=== PATIENT | female | born 1985 | race Caucasian/White ===

== ENCOUNTER 2025-02-03 19:17 | Inpatient (IN) ==
--- NOTE | 2025-02-03 19:37 | ED Physician Documentation ---
History of Present Illness Stated complaint Stated Complaint: HYSTERECTOMY POST/OP -FEVER Chief complaint Chief Complaint: Fever Additonal information Additional information: 39-year-old with recent hysterectomy at [facility] on January 18 presents with lower abdominal pain and fever. Patient reports that she has been recovering well since her hysterectomy with Dr. Whaley on January 18. Over the last week, she has been having some right lower quadrant abdominal pain. Last night, she recorded a temperature of 101.1 F. She has been taking [id number] pain antipyretics. Otherwise, she denies any other systemic symptoms such as cough, congestion, shortness of breath, chest pain, vomiting, dysuria, vaginal bleeding, vaginal discharge, diarrhea, or constipation. Prior surgeries include hysterectomy and cholecystectomy. She went to Urgent Care and was tested negative for COVID/flu/RSV. Meds/Allgy Home Medications Ambulatory Orders Medication Instructions Recorded Confirmed No Known Home Medications 02/03/2508/23 Allergies Allergies Allergy/AdvReac Type Severity Reaction Status Date / Time Penicillins Allergy Hives Verified 02/03/25 19:28 PFSH Active Problems All Active Problems (Updated 02/04/25 @ 00:41 by Victoriano Leggett MD) Hydronephrosis of right kidney (Acute) Postoperative abscess (Acute) Fever and chills (Acute) Surgical History Surgical History (Updated 02/03/25 @ 22:34 by Gege Jauregui RN) History of hysterectomy Social History Social History (Updated 02/03/25 @ 10:04 by Sania August RN, BSN) Smoking Status: Never smoker Do you feel safe in your home environment?: Yes History of physical, verbal, emotional, or financial abuse?: No Exam Exam Vital Signs: Vital Signs x48h Temp Pulse Resp BP Pulse Ox 02/04/25 00:54 99 16 116/67 95 02/03/25 23:39 69 16 113/73 99 02/03/25 22:39 37.2 C 78 16 116/78 98 02/03/25 21:36 76 16 112/80 100 02/03/25 19:22 37.3 C 86 16 136/89 H 99 Resting comfortably no acute distress. No fever or tachycardia. Awake, alert, and oriented to person, place, and situation. Lungs are clear to auscultation bilaterally. S1 and S2 are audible. Abdomen is soft with right lower quadrant tenderness. There is no rebound or guarding. Moving all extremities without focal neurologic deficit. No lower extremity edema or calf tenderness bilaterally. Results Vitals Vitals: Vital Signs - 24 hr 02/03/25 19:22 02/03/25 19:58 02/03/25 21:36 Temperature 37.3 C Temperature Source Temporal Artery Scan Pulse Rate 86 76 Respiratory Rate 16 16 Blood Pressure 136/89 H 112/80 O2 Saturation 99 100 O2 Source Room air Room air Pain Intensity 3 4 02/03/25 22:26 02/03/25 22:39 02/03/25 23:38 Temperature 37.2 C Temperature Source Oral Pulse Rate 78 Respiratory Rate 16 Blood Pressure 116/78 O2 Saturation 98 O2 Source Room air Pain Intensity 2 3 7 02/03/25 23:39 02/04/25 00:08 02/04/25 00:54 Temperature Temperature Source Pulse Rate 69 99 Respiratory Rate 16 16 Blood Pressure 113/73 116/67 O2 Saturation 99 95 O2 Source Room air Room air Pain Intensity 4 Oxygen O2 Source Room air Labs Labs: Laboratory Tests 02/03/25 02/03/25 02/03/25 19:40 19:53 22:38 WBC 13.5 H RBC 3.76 L Hgb 10.0 L Hct 31.3 L MCV 83.2 MCH 26.6 L MCHC 31.9 L RDW 12.7 Plt Count 433 MPV 9.6 Neut # (Auto) 9.8 H Lymph # (Auto) 2.1 [place] # (Auto) 1.2 H Eos # (Auto) 0.2 Baso # (Auto) 0.1 Absolute Nucleated RBC 0.00 Nucleated RBC % 0.0 Sodium 137 Potassium 3.1 L Chloride 104 Carbon Dioxide 26 Anion Gap 7.0 BUN 11 Creatinine 0.6 Estimated GFR (MDRD) 111 Glucose 98 Lactic Acid 0.6 Calcium 9.0 Total Bilirubin 0.4 AST 17 ALT 25 Alkaline Phosphatase 160 H Total Protein 7.4 Albumin 3.9 Globulin 3.5 Albumin/Globulin Ratio 1.1 Urine Color YELLOW Urine Clarity HAZY Urine pH 6.5 Ur Specific [place] 1.010 Urine Protein NEGATIVE Urine Glucose (UA) NEGATIVE Urine Ketones NEGATIVE Urine Occult Blood MODERATE Urine Nitrite NEGATIVE Urine Bilirubin NEGATIVE Urine Urobilinogen 0.2 (NORMAL) Ur Leukocyte Esterase NEGATIVE Urine RBC 0-5 Urine WBC 0-3 Ur Squamous Epith Cells RARE Squamous Urine Bacteria Rare Ur Microscopic Review INDICATED Urine Culture Comments NOT INDICATED PD Medical Decision Making ED course ED course: This patient presents with fever and right lower quadrant abdominal pain 2 weeks after recent hysterectomy for adenomyosis. Fortunately, she is hemodynamically stable here. She already has had an appendectomy. Differential diagnosis includes postoperative infection, urinary tract infection, viral syndrome, and colitis. I will order labs, UA, and CT abdomen pelvis. I will treat pain with ketorolac. CT ab pelvis shows 5.2 cm postoperative pelvic abscess with associated localized bladder, colon, and ureteral inflammation. There is moderate right hydrou reteronpehrosis. Ceftriaxone and metronidazole were commenced after blood cultures and lactic acid were drawn. I spoke to on-call MAINTENANCE REPAIRMAN at [place]. They did not feel the patient necessarily needed transfer for admission there. There are also no current inpatient beds. I then spoke to on-call MAINTENANCE REPAIRMAN Dr. Arriaga here. She felt the patient would be appropriate to keep here for treatment. We did discuss the potential for transfer to a facility with IR. I then was connected with [facility] IR team Dr. Palacios. He was unable to view the CT images at that time. However, he states he will review the images during the day as this is not technically a consult they take overnight. He also would not perform the procedure until Wednesday anyway if indicated. The patient does not need emergent transfer for IR intervention at this time as she is not hemodynamically unstable. She will be admitted here to the MAINTENANCE REPAIRMAN service under Dr. Arriaga. Discharge Plan Discharge Patient Disposition: [facility] DC/Xfer Clinical Impression: Postoperative abscess, Hydronephrosis of right kidney Interventions: ED Admission Assessment Last Done: 02/04/25 02:14 Vitals documented within 30 minutes of discharge?: Yes
[2025-02-03] MEDS ORDERED: KETOROLAC 30 MG/ML VIAL ONE (19:56)
[2025-02-03] MEDS: KETOROLAC 15 MG/ML VIAL IVP PRN (19:58)
[2025-02-03 20:00] LABS: HCT - HEMATOCRIT 31.3 % (37.0-47.0); HGB - HEMOGLOBIN 10.0 g/dL (12.0-16.0); MEAN PLATELET VOLUME 9.6 fL (7.9-10.8); NRBC ABSOLUTE COUNT (AUTO) 0.00 x10^3/uL; NUCLEATED RED BLOOD CELLS AUTO 0.0 /100WBC; PLT - PLATELET COUNT 433 10^3/uL (130-450); RED CELL DISTRIBUTION WIDTH 12.7 % (12.0-15.0)
[2025-02-03 20:04] LABS: GLUCOSE, URINE (UA) NEGATIVE (NEGATIVE); KETONES,URINE (UA) NEGATIVE (NEGATIVE); OCCULT BLOOD,URINE MODERATE (NEGATIVE)
[2025-02-03 20:18] LABS: ALT ALANINE AMINOTRANSFERASE 25.0 IU/L (10-60); AST ASPARTATE AMINOTRANSFERASE 17.0 IU/L (10-42); BUN - BLOOD UREA NITROGEN 11.0 mg/dL (6-20); CARBON DIOXIDE - CO2 26.0 mmol/L (21-32); CREATININE 0.6 mg/dL (0.6-1.3); GFR - MDRD 111.0 (>89)
[2025-02-03 20:22] LABS: SQUAMOUS EPITHELIAL CELL,UR RARE Squamous (<= Few)
--- NOTE | 2025-02-03 21:53 | CT Report ---
PROCEDURE: CT Abdomen/Pelvis W INDICATIONS: recent hysterectomy, fever, RLQ pain, appendectomy CONTRAST: 100 ML OMNI 300 TECHNIQUE: After the administration of intravenous contrast, a CT scan of the abdomen and pelvis was performed. Images were recorded and evaluated at appropriate window settings. Reformats: coronal and sagittal. For radiation dose reduction, the following was used: automated exposure control, adjustment of mA and/or kV according to patient size. COMPARISON: None. FINDINGS: Image quality: Diagnostic. Lower chest: Bilateral breast implants.. Liver: No solid mass. Heterogeneous enhancement of the right inferior liver, likely secondary to contrast phase. Gallbladder: No radiopaque stones or wall thickening. Biliary tree: No intrahepatic or extrahepatic dilation, accounting for age. Spleen: No splenomegaly. Pancreas: No pancreatic ductal dilation. Adrenals: No adrenal nodule. Kidneys and ureters: Moderate right hydroureteronephrosis secondary to obstruction of the right distal ureter at the level of the pelvic abscess described below. There is hypoenhancement of the right kidney in relation to the left. The left kidney is unremarkable. Stomach, bowel and peritoneum: Prominent thickening and inflammatory change centered around the vaginal cuff. There is a rim-enhancing fluid collection within the pelvis at the right superior margin of the vaginal cuff measuring approximately 4.5 x 5.2 x 3.0 cm. The collection abuts the right posterior bladder wall and the distal sigmoid colon, both of which demonstrate wall thickening and inflammatory change, likely reactive. There is also abutment of small bowel loops superiorly. The remaining small and large bowel are unremarkable. Status post appendectomy. Lymph nodes: No central or retroperitoneal adenopathy. Vessels: No infrarenal aortic aneurysm. Patent portal vein. PELVIS Reproductive organs: Status post recent hysterectomy. Thickening and prominent inflammatory change centered around the vaginal cuff, with findings of pelvic abscess and adjacent inflammation described above. Bladder: Circumferential bladder wall thickening and inflammatory change, possibly reactive Pelvic lymph nodes: No pelvic adenopathy by size criteria. Bones: No aggressive osseous abnormality. Other: No significant ventral or inguinal hernia. IMPRESSION: Status post recent hysterectomy with prominent inflammatory change centered at the vaginal cuff. There is a 5.2 cm abscess at the superior right margin of the vaginal cuff, abutting the bladder, distal sigmoid colon, and pelvic small bowel loops. Moderate right hydroureteronephrosis secondary to obstruction of the right distal ureter at the level of the pelvic abscess, with mild hypoenhancement of the right kidney. Circumferential bladder wall thickening and inflammatory change, likely reactive to pelvic abscess described. Correlate with urinalysis and clinical symptoms for findings of concurrent acute cystitis. Inflammatory change of the distal sigmoid colon is likely reactive to pelvic abscess. Reviewed by: Prem Daly MD on 02/03/2025 9:50 PM PST Approved by: Prem Daly MD on 02/03/2025 9:50 PM PST Station ID: [id number]
[2025-02-03] MEDS: oxyCODONE 5 MG TABLET PO PRN (23:38)
[2025-02-04] MEDS ORDERED: ZOLPIDEM 5 MG TABLET PO PRN (01:55)
[2025-02-04] MEDS ORDERED: FAMOTIDINE 20 MG TABLET PO PRN (01:55)
[2025-02-04] MEDS ORDERED: SODIUM CHLORIDE FLUSH 0.9% 10 ML SYRINGE IVP PRN (01:55)
[2025-02-04] MEDS ORDERED: METOCLOPRAMIDE 10 MG/2 ML VIAL IVP PRN (01:55)
--- NOTE | 2025-02-04 01:59 | HISTORY & PHYSICAL EXAMINATION ---
History of Present Illness History of Present Illness HPI Comment/Other: Details: Helena is a 39 yo who is admitted with postoperative pelvic abscess. She presented to the emergency room with fever, nausea, decreased appetite, and right sided pelvic pain following a total laparoscopic hysterectomy with bilateral salpingectomy performed on January 18 at [facility]. The hysterectomy was done for adenomyosis. She reports fever starting yesterday reaching 101 degrees. Right sided pelvic pain started approximately one week ago. She reports nausea but no vomiting. At home, she was managing her pain with Tylenol and ibuprofen. She was seen in urgent care yesterday since she was not feeling well and tested for flu/covid which were negative. Decided to come to the ER today since she still wasn't feeling well. She reports a mild allergy to penicillin and believes she has tolerated cephalosporin antibiotics before. She lives in [place]. Meds/Allgy Home Medications Ambulatory Orders Medication Instructions Recorded Confirmed No Known Home Medications 02/03/2508/23 Allergies Allergies Allergy/AdvReac Type Severity Reaction Status Date / Time Penicillins Allergy Hives Verified 02/03/25 19:28 PFSH Active Problems All Active Problems (Updated 02/04/25 @ 00:41 by Victoriano Leggett MD) Fever and chills (Acute) Hydronephrosis of right kidney (Acute) Postoperative abscess (Acute) Surgical History Surgical History (Updated 02/04/25 @ 12:12 by Lynn Arriaga MD) History of appendectomy History of hysterectomy History of tonsillectomy Social History Social History (Updated 02/03/25 @ 10:04 by Sania August, RN, BSN) Smoking Status: Never smoker Second hand tobacco smoke exposure: No Do you dip or chew tobacco?: No Do you vape?: No Patient requests smoking cessation consult: No Initiate information on smoking cessation: No Level: Independent Do you feel safe in your home environment?: Yes History of physical, verbal, emotional, or financial abuse?: No POLST Patient has POLST: No Review of Systems Fever present, reaching 101 degrees starting yesterday. Nausea present. Denies vomiting. Denies diarrhea or constipation. Denies vaginal bleeding or abnormal discharge. Denies chest pain. Denies shortness of breath. Exam Exam Vital Signs: Vital Signs x48h Temp Pulse Resp BP BP Pulse Ox 02/04/25 11:48 84 87/52 L 02/04/25 11:45 97.7 F 80 16 86/54 L 98 02/04/25 07:55 99.1 F 84 16 108/74 99 02/04/25 06:00 98.2 F 86 12 105/73 98 Constitutional normal general appearance and no apparent distress She is overall well-appearing. Respiratory breath sounds equal bilaterally, normal respiratory effort and clear to auscultation bilaterally Cardiovascular normal heart rate noted and regular rhythm noted Gastrointestinal abdomen soft to palpation mildly TTP in lower abdomen on right, no rebound/guarding. Non-distended. Laparoscopic incisions are healing well, no evidence of infection. Genitourinary Deferred Psychiatry cooperative and affect normal Skin skin color normal and no rash Conclusion/Plan Problem List (1) Postoperative abscess: (2) History of hysterectomy: (3) Hydronephrosis of right kidney: Plan - Rosy is admitted for treatment of a 5.2cm pelvic abscess with IV antibiotics, IV ceftriaxone and metronidazole. - I requested that Dr. Alba review CT images today given the findings of moderate right hydroureteronephrosis and he recommended CT IVP if repeat imaging is obtained for follow up of the abscess. Hopefully ureteral/renal findings will improve with treatment of the abscess, but if abnormal findings persist may need further evaluation to ensure there is no ureteral injury. - Will plan for CT IVP Wednesday AM after 48hrs of IV antibiotics. Will make NPO on Wednesday morning in case cystoscopy is needed. Lab Results Lab results reviewed: Yes 02/03/25 19:53 02/03/25 19:53 Other Lab Results: Lactic Acid 0.6 UA with mod blood negative for leuks, nitrites, urine culture not indicated Cr 0.6 Blood cultures drawn in ED pending. Diagnostic Imaging Results Diagnostic Imaging Results Comments: CT A/P Report/Images reviewed: PROCEDURE: CT Abdomen/Pelvis W INDICATIONS: recent hysterectomy, fever, RLQ pain, appendectomy CONTRAST: 100 ML OMNI 300 TECHNIQUE: After the administration of intravenous contrast, a CT scan of the abdomen and pelvis was performed. Images were recorded and evaluated at appropriate window settings. Reformats: coronal and sagittal. For radiation dose reduction, the following was used: automated exposure control, adjustment of mA and/or kV according to patient size. COMPARISON: None. FINDINGS: Image quality: Diagnostic. Lower chest: Bilateral breast implants.. Liver: No solid mass. Heterogeneous enhancement of the right inferior liver, likely secondary to contrast phase. Gallbladder: No radiopaque stones or wall thickening. Biliary tree: No intrahepatic or extrahepatic dilation, accounting for age. Spleen: No splenomegaly. Pancreas: No pancreatic ductal dilation. Adrenals: No adrenal nodule. Kidneys and ureters: Moderate right hydroureteronephrosis secondary to obstruction of the right distal ureter at the level of the pelvic abscess described below. There is hypoenhancement of the right kidney in relation to the left. The left kidney is unremarkable. Stomach, bowel and peritoneum: Prominent thickening and inflammatory change centered around the vaginal cuff. There is a rim-enhancing fluid collection within the pelvis at the right superior margin of the vaginal cuff measuring approximately 4.5 x 5.2 x 3.0 cm. The collection abuts the right posterior bladder wall and the distal sigmoid colon, both of which demonstrate wall thickening and inflammatory change, likely reactive. There is also abutment of small bowel loops superiorly. The remaining small and large bowel are unremarkable. Status post appendectomy. Lymph nodes: No central or retroperitoneal adenopathy. Vessels: No infrarenal aortic aneurysm. Patent portal vein. PELVIS Reproductive organs: Status post recent hysterectomy. Thickening and prominent inflammatory change centered around the vaginal cuff, with findings of pelvic abscess and adjacent inflammation described above. Bladder: Circumferential bladder wall thickening and inflammatory change, possibly reactive Pelvic lymph nodes: No pelvic adenopathy by size criteria. Bones: No aggressive osseous abnormality. Other: No significant ventral or inguinal hernia. IMPRESSION: Status post recent hysterectomy with prominent inflammatory change centered at the vaginal cuff. There is a 5.2 cm abscess at the superior right margin of the vaginal cuff, abutting the bladder, distal sigmoid colon, and pelvic small bowel loops. Moderate right hydroureteronephrosis secondary to obstruction of the right distal ureter at the level of the pelvic abscess, with mild hypoenhancement of the right kidney. Circumferential bladder wall thickening and inflammatory change, likely reactive to pelvic abscess described. Correlate with urinalysis and clinical symptoms for findings of concurrent acute cystitis. Inflammatory change of the distal sigmoid colon is likely reactive to pelvic abscess. Reviewed by: Prem Daly MD on 02/03/2025 9:50 PM PST Approved by: Prem Daly MD on 02/03/2025 9:50 PM PST
[2025-02-04] MEDS ORDERED: GENTAMICIN 308 MG in SODIUM CHLORIDE 0.9% 100ML 100 ML IV SCH (02:00)
[2025-02-04] MEDS ORDERED: CLINDAMYCIN 900 MG/50 ML 900 MG/50 ML BAG IV SCH (02:00)
[2025-02-04] MEDS ORDERED: CALCIUM CARBONATE CHEW 500 MG TABLET PO PRN (03:09)
[2025-02-04] MEDS ORDERED: SIMETHICONE CHEW 80 MG TABLET PO PRN (03:09)
[2025-02-04] MEDS: IBUPROFEN 600 MG TABLET PO PRN (07:08)
[2025-02-04] MEDS: ONDANSETRON ODT 4 MG TABLET TL PRN (07:09)
[2025-02-04] MEDS: SODIUM CHLORIDE FLUSH 0.9% 10 ML SYRINGE IVP SCH (08:06)
--- NOTE | 2025-02-04 08:56 | PHARMACY PROGRESS NOTE ---
Best Possible Medication History Admit Date and Time: 02/04/25 0127 Home Medications Medication Instructions Recorded Confirmed Type No Known Home Medications 02/03/2508/23 History Processed by: Nursing Medications reviewed in ED?: Yes Medication History completed: Yes Secondary Source(s): Pharmacy records and Insurance records [facility] Statement: As the person ultimately responsible for medication therapy, providers are able to order a medication from an existing home medication list in [facility] via the "Reconcile Routine" prior to Confirmation of that medication by system support specialist. Such practice is discouraged except when the physician, in their clinical judgment, deems that a medical need exists for a medication without regard to previous use.
[2025-02-04] MEDS: ACETAMINOPHEN 325 MG TABLET PO PRN (15:34)
[2025-02-04 16:11] LABS: HCT - HEMATOCRIT 26.6 % (37.0-47.0); HGB - HEMOGLOBIN 8.6 g/dL (12.0-16.0); MEAN PLATELET VOLUME 9.3 fL (7.9-10.8); NRBC ABSOLUTE COUNT (AUTO) 0.00 x10^3/uL; NUCLEATED RED BLOOD CELLS AUTO 0.0 /100WBC; PLT - PLATELET COUNT 332 10^3/uL (130-450); RED CELL DISTRIBUTION WIDTH 12.8 % (12.0-15.0)
--- OUTSIDE RECORDS SUMMARY | 2025-02-04 16:21 | EXTERNAL MEDICAL SUMMARY RPT | Continuity of Care Document ---
Author Organization [facility] Address [address] [place] [address] Phone Care Team Providers Care Cnc Lathe Machine Operator Name Role Phone Parminder KRUGER, Gualberto Unavailable Unavailable Allergies, Adverse Reactions, Alerts Substance Reaction Status Criticality Penicillins Rash Active No Information Medications Medication Instructions Dosage Effective Dates (start - stop) Status Comments Reclipsen (28) 0.15 mg-30 mcg tablet take 1 tablet by oral route every day 1.00 tablet - Active Procedures Procedure Date REMOVE INTRAUTERINE DEVICE FLU VACCINE NO PRESERV 3 & > IMMUNIZATION ADMIN REMOVE INTRAUTERINE DEVICE OFFICE/OUTPATIENT VISIT, EST OFFICE/OUTPATIENT VISIT, EST Intraut copper contraceptive INSERT INTRAUTERINE DEVICE CARE AFTER DELIVERY (Post- Care) A POSTOP FOLLOW-UP VISIT Return OB DELIVERY Return OB Return OB Return OB Return OB Return OB CULTURE SCREEN ONLY CULTURE TYPE, NUCLEIC ACID Return OB Return OB TDAP VACCINE >7 IM IMMUNIZATION ADMIN Return OB OB US, FOLLOW-UP, PER FETUS GLUCOSE TEST COMPLETE CBC W/AUTO DIFF WBC ROUTINE VENIPUNCTURE Return OB OB US >/= 14 WKS, SNGL FETUS Return OB Return OB FLU VACCINE NO PRESERV 3 & > IMMUNIZATION ADMIN Return OB OB Contract New Patient OB Physical ROUTINE VENIPUNCTURE OBSTETRIC PANEL CYTOPATH C/V AUTO FLUID REDO CHYLMD TRACH, DNA, AMP PROBE N.GONORRHOEAE, DNA, AMP PROB URINE CULTURE/COLONY COUNT Advance Directives Directive Yes / No Effective Date File Name No Information Encounters Encounter Description Practice Location Reason(s) For Visit Diagnoses Date Provider Providers Copied on Encounter [facility], [address], [place], [id number] , [place] tel: [phone] [facility] No Information 6 Parminder Burciaga. [address] [place], [address], [place]. tel:[phone] OFFICE/OUTPAT IENT VISIT, EST [facility], [address], [place], [id number] , [place] tel: [phone] [facility] IUD removal (chief complaint) REMOVAL OF IUD 2 Parminder Burciaga. [address] [place], [address], [place]. tel:[phone] Referring Provider: Gualberto Constantino, [address] [place], [address]. tel:[phone] OFFICE/OUTPAT IENT VISIT, EST [facility], [address], [place], [id number] , [place] tel: [phone] [facility] IUD check (chief complaint) Presence of intrauterine contraceptive device 2 Parminder Burciaga. [address] [place], [address], [place]. tel:[phone] Referring Provider: Gualberto Constantino, [address] [place], [address]. tel:[phone] [facility], [address], [place], [id number] , [place] tel: [phone] [facility] visit (chief complaint) Followup VisitIUDINSERTION OF IUD 2 Zurita Gualberto. [address] [place] [facility], [address], [place]. tel:[phone] Referring Provider: Gualberto Zurita W, [address] [place] [facility], [address]. tel:[phone] [facility], [address], [place], [place], [id number] , [place] tel: [phone] [facility] Follow-up examination, following unspecified surgery 2 Parminder Burciaga. [address] [place] [facility] [place], [address], [place]. tel:[phone] Referring Provider: Gualberto Constantino, [address] [place] [facility], [address]. tel:[phone] [facility], [address], [place], [place], [id number] , [place] tel: [phone] [facility] No Information 2 Zurita Gualberto. [address] [place] [facility] [place] [place], [address], [place]. tel:[phone] Referring Provider: Gualberto Zurita W, [address] [place] [facility] [place], [address]. tel:[phone] [facility], [address], [place], [place], [id number] , [place] tel: [phone] [facility] No Information 2 Erasto Morin. [address], [place], [place], [id number]. tel:[phone] Referring Provider: Patience Neal, [address], [place], [address] . tel:[phone] [facility], [address], [place], [place], [id number] , [place] tel: [phone] [facility] No Information 0 2 Parminder Burciaga. [address] [place] [facility], [address], [place]. tel:[phone] Referring Provider: Gualberto Constantino, [address] [place] [facility] [place] [place], [address]. tel:[phone] [facility], [address] [place], [place], [id number] , [place] tel: [phone] [facility] No Information 2 Parminder Burciaga. [address] [place] [facility], [address], [place]. tel:[phone] Referring Provider: Gualberto Zurita W, [address] [place] [facility], [address]. tel:[phone] [facility], [address] [place], [place], [id number] , [place] tel: [phone] [facility] No Information 2 Parminder Burciaga. [address] [place] [facility] [place] [place], [address], [place]. tel:[phone] Referring Provider: Gualberto Zurita W, [address] [place] [facility] [place], [address]. tel:[phone] [facility], [address] [place], [place], [id number] , [place] tel: [phone] [facility] No Information 2 Parminder Burciaga. [address] [place] [facility] [place] [place], [address], [place]. tel:[phone] Referring Provider: Gualberto Constantino, [address] [place] [facility] [place] [place], [address]. tel:[phone] [facility], [address] [place], [place], [id number] , [place] tel: [phone] [facility] (chief complaint) No Information 2 Parminder Burciaga. [address] [place] [facility] [place] [place], [address], [place]. tel:[phone] Referring Provider: Gualberto Zurita W, [address] [place] [facility] [place], [address]. tel:[phone] [facility], [address] [place], [place], [id number] , [place] tel: [phone] [facility] (chief complaint) No Information 2 Boydusha Hernandez. [address], [place], [place], [id number]. tel:[phone] Referring Provider: Gualberto Constantino, [address] [place] [facility] [place], [address]. tel:[phone] [facility], [address], [place], [id number] , [place] tel: [phone] [facility] NEED FOR PROPHYLACTIC VACCINATION WITH COMBINED DIPHTHERIA-TETANUS -PERTUSSIS (DTP) (DTAP) VACCINE 2 Parminder Burciaga. [address] [place] [facility] [place] [place], [address], [place]. tel:[phone] Referring Provider: Gualberto Constantino, [address] [place] [facility] [place] [place], [address]. tel:[phone] [facility], [address], [place], [id number] , [place] tel: [phone] [facility] (chief complaint) No Information 1 Boydusha Hernandez. [address], [place], [place], [id number]. tel:[phone] Referring Provider: Gualberto Constantino, [address] [place] [facility] [place] [place], [address]. tel:[phone] [facility], [address], [place], [id number] , [place] tel: [phone] [facility] No Information 1 Abhilash Miesha. [address], [place], [id number], [place]. tel:[phone] Referring Provider: Gualberto Constantino, [address] [place] [facility] [place] [place], [address]. tel:[phone] [facility], [address], [place], [id number] , [place] tel: [phone] [facility] (chief complaint) No Information 1 Oliver Hernandez. [address], [place], [place], [id number]. tel:[phone] Referring Provider: Gualberto Constantino, [address] [place] [facility] [place] [place], [address]. tel:[phone] [facility], [address] [place], [id number] , [place] tel: [phone] [facility] (chief complaint) No Information 1 Fany Alvarado. [address], [place], [id number]. tel:[phone] Referring Provider: Gualberto Constantino, [address] [place] [facility] [place], [address]. tel:[phone] [facility], [address], [place], [id number] , [place] tel: [phone] [facility] Influenza Vaccine 1 Parminder Burciaga. [address] [place] [facility] [place] [place], [address], [place]. tel:[phone] Referring Provider: Gualberto Constantino, [address] [place] [facility] [place] [place], [address]. tel:[phone] [facility], [address] [place], [id number] , [place] tel: [phone] [facility] No Information 1 Parminder Burciaga. [address] [place] [facility], [address], [place]. tel:[phone] [facility], [address] [place], [id number] , [place] tel: [phone] [facility] No Information 1 Parminder Burciaga. [address] [place] [facility] [place] [place], [address], [place]. tel:[phone] Referring Provider: Gualberto Constantino, [address] [place] [facility], [address]. tel:[phone] [facility], [address], [place], [id number] , [place] tel: [phone] [facility] No Information 1 Fany Alvarado. [address], [place], [id number]. tel:[phone] Referring Provider: Christiano August, [address] [place], [address] . tel:[phone] [facility], [address], [place], [id number] , [place] tel: [phone] [facility] No Information 1 Oliver Hernandez. [address], [place], [place], [id number]. tel:[phone] Referring Provider: Chirstiano August [address] [place], [address] . tel:[phone] Family History Family Member Type Diagnosis Age At Onset Paternal grandmother Problem (finding) Obesity Mother Problem (finding) raised blood lipids Paternal grandmother Problem (finding) Diabetes mellit us Immunizations Vaccine Date Status Comments flu (split) preservative joe e, 3 yrs or older administered Source: New Immuniza tion Record Tdap (Adacel r) administered Source: New Immunization Record flu (split) preservative joe e, 3 yrs or older administered Source: New Immuniza tion Record flu (split) (3 yrs or older) administered Source: New Immunization Record Payers Payer name Insurance type Covered democrat ID Authoriza tion(s) [place] Source N CI [id number] Social History Type Description Quantity Date Captured Comments Alcohol Use Details Unknown Caffeine Use Details Unknown Tobacco Use Status No Information Smoking Status No Information Sex Female Chief Complaint And Reason For Visit No Information Reason For Referral Reason For Referral No Information Plan Of Treatment Date Type Action Status Referral Ordered: US preg uterus, FU/repeat ordered History Of Present Illness Encounter Date Complaint History Of Prese nt Illness No Information Functional Status Date Functional Assessmen t No Information Instructions Date Instruction Additional Infor mation No Information Assessments Type Assessment Date No Information Patient Care Teams Name Effective Dates (start - stop) Status Members No Information
--- OUTSIDE RECORDS SUMMARY | 2025-02-04 16:21 | EXTERNAL MEDICAL SUMMARY RPT | Continuity of Care Document ---
Author Organization [facility] Address [address] [place] [address] Phone Care Team Providers Care Sprayer Automatic Spray Machine Name Role Phone Parminder KRUGER, Gualberto Unavailable [...] [facility], [address], [place], [id number] , [place] tel: [phone] [facility] No Information 6 Parminder Burciaga. [address] [place], [address], [place]. tel:[phone] OFFICE/OUTPAT IENT VISIT, EST [facility], [address], [place], [id number] , [place] tel: [phone] [facility] IUD removal (chief complaint) REMOVAL OF IUD 2 Parminder Burciaga. [address] [place], [address], [place]. tel:[phone] Referring Provider: Gualberto Constantino, [address] [place], [address]. tel:[phone] OFFICE/OUTPAT IENT VISIT, EST [facility], [address], [place], [id number] , [place] tel: [phone] [facility] IUD check (chief complaint) Presence of intrauterine contraceptive device 2 Parminder Burciaga. [address] [place], [address], [place]. tel:[phone] Referring Provider: Gualberto Constantino, [address] [place], [address]. tel:[phone] [facility], [address], [place], [id number] , [place] tel: [phone] [facility] visit (chief complaint) Followup VisitIUDINSERTION OF IUD 2 Zurita Gualberto. [address] [place] [facility], [address], [place]. tel:[phone] Referring Provider: Gualberto Zurita W, [address] [place] [facility], [address]. tel:[phone] [facility], [address], [place], [place], [id number] , [place] tel: [phone] [facility] Follow-up examination, following unspecified surgery 2 Parminder Burciaga. [address] [place] [facility], [address], [place]. tel:[phone] Referring Provider: Gualberto Constantino, [address] [place] [facility], [address]. tel:[phone] [facility], [address], [place], [place], [id number] , [place] tel: [phone] [facility] No Information 2 Zurita Gualberto. [address] [place] [facility] [place], [address], [place]. tel:[phone] Referring Provider: Gualberto Zurita W, [address] [place] [facility], [address]. tel:[phone] [facility], [address], [place], [place], [id number] , [place] tel: [phone] [facility] No Information 2 Erasto Morin. [address], [place], [place], [id number]. tel:[phone] Referring Provider: Patience Neal, [address], [place], [address] . tel:[phone] [facility], [address], [place], [place], [id number] , [place] tel: [phone] [facility] No Information 0 2 Parminder Burciaga. [address] [place] [facility], [address], [place]. tel:[phone] Referring Provider: Gualberto Constantino, [address] [place] [facility], [address]. tel:[phone] [facility], [address] [place], [place], [id number] , [place] tel: [phone] [facility] No Information 2 Parminder Burciaga. [address] [place] [facility], [address], [place]. tel:[phone] Referring Provider: Gualberto Zurita W, [address] [place] [facility], [address]. tel:[phone] [facility], [address] [place], [place], [id number] , [place] tel: [phone] [facility] No Information 2 Parminder Burciaga. [address] [place] [facility], [address], [place]. tel:[phone] Referring Provider: Gualberto Zurita W, [address] [place] [facility], [address]. tel:[phone] [facility], [address] [place], [place], [id number] , [place] tel: [phone] [facility] No Information 2 Parminder Burciaga. [address] [place] [facility] [place], [address], [place]. tel:[phone] Referring Provider: Gualberto Constantino, [address] [place] [facility], [address]. tel:[phone] [facility], [address] [place], [place], [id number] , [place] tel: [phone] [facility] (chief complaint) No Information 2 Parminder Burciaga. [address] [place] [facility] [place], [address], [place]. tel:[phone] Referring Provider: Gualberto Zurita W, [address] [place] [facility], [address]. tel:[phone] [facility], [address] [place], [place], [id number] , [place] tel: [phone] [facility] (chief complaint) No Information 2 Boydusha Hernandez. [address], [place], [place], [id number]. tel:[phone] Referring Provider: Gualberto Constantino, [address] [place] [facility], [address]. tel:[phone] [facility], [address], [place], [id number] , [place] tel: [phone] [facility] NEED FOR PROPHYLACTIC VACCINATION WITH COMBINED DIPHTHERIA-TETANUS -PERTUSSIS (DTP) (DTAP) VACCINE 2 Parminder Burciaga. [address] [place] [facility], [address], [place]. tel:[phone] Referring Provider: Gualberto Constantino, [address] [place] [facility], [address]. tel:[phone] [facility], [address], [place], [id number] , [place] tel: [phone] [facility] (chief complaint) No Information 1 Boydusha Hernandez. [address], [place], [place], [id number]. tel:[phone] Referring Provider: Gualberto Constantino, [address] [place] [facility], [address]. tel:[phone] [facility], [address], [place], [id number] , [place] tel: [phone] [facility] No Information 1 Abhilash Miesha. [address], [place], [id number], [place]. tel:[phone] Referring Provider: Gualberto Constantino, [address] [place] [facility], [address]. tel:[phone] [facility], [address], [place], [id number] , [place] tel: [phone] [facility] (chief complaint) No Information 1 Oliver Hernandez. [address], [place], [place], [id number]. tel:[phone] Referring Provider: Gualberto Constantino, [address] [place] [facility], [address]. tel:[phone] [facility], [address] [place], [id number] , [place] tel: [phone] [facility] (chief complaint) No Information 1 Fany Alvarado. [address], [place], [id number]. tel:[phone] Referring Provider: Gualberto Constantino, [address] [place] [facility], [address]. tel:[phone] [facility], [address], [place], [id number] , [place] tel: [phone] [facility] Influenza Vaccine 1 Parminder Burciaga. [address] [place] [facility], [address], [place]. tel:[phone] Referring Provider: Gualberto Constantino, [address] [place] [facility], [address]. tel:[phone] [facility], [address] [place], [id number] , [place] tel: [phone] [facility] No Information 1 Parminder Burciaga. [address] [place] [facility], [address], [place]. tel:[phone] [facility], [address] [place], [id number] , [place] tel: [phone] [facility] No Information 1 Parminder Burciaga. [address] [place] [facility], [address], [place]. tel:[phone] Referring Provider: Gualberto Constantino, [address] [place] [facility], [address]. tel:[phone] [facility], [address], [place], [id number] , [place] tel: [phone] [facility] No Information 1 Fany Alvarado. [address], [place], [id number]. tel:[phone] Referring Provider: Christiano uAgust, [address] [place], [id number] . tel:[phone] [facility], [address], [place], [id number] , [place] tel: [phone] [facility] No Information 1 Oliver Hernandez. [address], [place], [place], [id number]. tel:[phone] Referring Provider: Christiano August [address] [place], [address] . tel:[phone] Family History Family Member Type Diagnosis Age [...] Record Payers Payer name Insurance type Covered constitution party ID Authoriza tion(s) [place] Source N CI [id number] Social History Type Description Quantity Date Captured [...]
[2025-02-04 16:24] LABS: ALT ALANINE AMINOTRANSFERASE 18.0 IU/L (10-60); AST ASPARTATE AMINOTRANSFERASE 10.0 IU/L (10-42); BUN - BLOOD UREA NITROGEN 13.0 mg/dL (6-20); CARBON DIOXIDE - CO2 24.0 mmol/L (21-32); CREATININE 0.6 mg/dL (0.6-1.3); GFR - MDRD 111.0 (>89)
[2025-02-04] MEDS: cefTRIAXone 2 GM in SODIUM CHLORIDE 0.9% MINIBAG 100 ML IV SCH (21:10)
--- NOTE | 2025-02-04 22:20 | PROVIDER PROGRESS NOTE ---
Subjective Prog Note Date Prog Note Date: 02/04/25 Prog Note Time: 22:14 Subjective Subjective: Rosy was seen at bedside again this afternoon. Reports still feeling unwell with ongoing twinges of pain in the right lower abdomen. Headache and nausea today. Nurse reports lower blood pressures today, but Rosy has been asymptomatic. On exam, abdomen remains soft, non-distended, mildly TTP in right lower abdomen, no rebound/guarding. Labs reviewed: CBC, CMP. Noted decreased in Hgb 10->8.6. Slightly improved WBC 13.5 -> 12.2. I reviewed plan with Rosy to continue IV antibiotics for 48hrs and then to repeat imaging with CT IVP on Wednesday to reevaluate status of abscess and right ureteral/renal findings. She does agree with plan of care. Repeat CBC ordered for tomorrow AM. Lynn Arriaga MD Current Medications Current Medications Current Medications: Current Medications Generic Name Dose Route Start Last Admin Trade Name Freq PRN Reason Stop Dose Admin Acetaminophen 650 mg 02/04/25 01:55 02/04/25 21:08 Acetaminophen 325 Mg Tablet PO 650 mg Q4HR PRN Administration Moderate Pain (Level 4-6) Calcium Carbonate/Glycine 1,000 mg 02/04/25 03:09 Calcium Carbonate Chew 500 Mg Tablet PO Q6HR PRN Heartburn Diphenhydramine HCl 25 mg 02/04/25 03:09 Diphenhydramine 25 Mg Capsule PO Q6HR PRN allergies, itching, insomnia Famotidine 20 mg 02/04/25 01:55 Famotidine 20 Mg Tablet PO BID PRN heartburn Ceftriaxone Sodium 2 gm/ 100 mls @ 200 mls/hr 02/04/25 22:00 02/04/25 21:40 Sodium Chloride IV Infused DAILY MALENA Infusion Metronidazole 500 mg in 100 mls @ 100 mls/hr 02/04/25 08:00 02/04/25 16:57 Flagyl 500 Mg/100 Ml IV Infused Q8H MALENA Infusion Ibuprofen 600 mg 02/04/25 01:55 02/04/25 07:08 Ibuprofen 600 Mg Tablet PO 600 mg Q6HR PRN Administration Moderate Pain (Level 4-6) Metoclopramide HCl 10 mg 02/04/25 01:55 Metoclopramide 10 Mg/2 Ml Vial IVP Q6H PRN Nausea / Vomiting Ondansetron HCl 4 mg 02/04/25 01:55 Ondansetron 4 Mg/2 Ml Vial IVP Q6H PRN Nausea / Vomiting Ondansetron HCl 4 mg 02/04/25 03:04 02/04/25 07:09 Ondansetron Odt 4 Mg Tablet TL 4 mg Q6HR PRN Administration Nausea / Vomiting Oxycodone HCl 5 mg 02/03/25 23:33 02/03/25 23:38 Oxycodone 5 Mg Tablet PO 5 mg Q4H PRN Administration Abdominal Pain Polyethylene Glycol 17 gm 02/04/25 03:04 Polyethylene Glycol 3350 17 Gm Packet PO DAILY PRN Bowel Protocol Simethicone 80 mg 02/04/25 03:09 Simethicone Chew 80 Mg Tablet PO TID PRN Gas Sodium Chloride 10 ml 02/04/25 09:00 02/04/25 15:48 Sodium Chloride Flush 0.9% 10 Ml Syringe IVP 10 ml 0100,0900,1700 MALENA Administration Sodium Chloride 10 ml 02/04/25 01:55 Sodium Chloride Flush 0.9% 10 Ml Syringe IVP PRN PRN NEEDED PER PROVIDER ORDERS Zolpidem Tartrate 5 mg 02/04/25 01:55 Zolpidem 5 Mg Tablet PO QPM PRN Insomnia Objective Vital Signs/Intake & Output Vital Signs: Vital Signs x48h Temp Pulse Resp BP BP Pulse Ox 02/04/25 20:00 89 95/61 02/04/25 19:50 98.6 F 91 16 87/53 L 98 02/04/25 15:39 98.1 F 78 16 111/74 100 Intake & Output: Intake & Output 02/01/25 02/02/25 02/03/25 02/04/25 23:59 23:59 23:59 23:59 Intake Total 100 / 100 1230 / 1230 Output Total 0 / 0 Balance 100 / 100 1230 / 1230 Weight (kg) 130 lb 128 lb 15.527 oz Lab Results 02/04/25 16:07 02/04/25 16:07 Other Labs: Lab Results x24hrs 02/04/25 02/03/25 Range/Units 16:07 22:38 WBC 12.2 H (4.8-10.8) x10^3/uL RBC 3.18 L (4.20-5.40) 10^6/uL Hgb 8.6 L (12.0-16.0) g/dL Hct 26.6 L (37.0-47.0) % MCV 83.6 (81.0-99.0) fL MCH 27.0 (27.0-31.0) pg MCHC 32.3 (32.0-36.0) g/dL RDW 12.8 (12.0-15.0) % Plt Count 332 (130-450) 10^3/uL MPV 9.3 (7.9-10.8) fL Neut # (Auto) 8.9 H (1.5-6.6) 10^3/uL Lymph # (Auto) 1.6 (1.5-3.5) 10^3/uL [place] # (Auto) 1.2 H (0.0-1.0) 10^3/uL Eos # (Auto) 0.3 (0.0-0.7) 10^3/uL Baso # (Auto) 0.1 (0.0-0.1) 10^3/uL Absolute Nucleated RBC 0.00 x10^3/uL Nucleated RBC % 0.0 /100WBC Sodium 137 (135-145) mmol/L Potassium 3.7 (3.5-4.5) mmol/L Chloride 107 (101-111) mmol/L Carbon Dioxide 24 (21-32) mmol/L Anion Gap 6.0 (6-13) BUN 13 (6-20) mg/dL Creatinine 0.6 (0.6-1.3) mg/dL Estimated GFR (MDRD) 111 (>89) Glucose 105 H (74-104) mg/dL Lactic Acid 0.6 (0.5-2.2) mmol/L Calcium 8.4 L (8.5-10.3) mg/dL Total Bilirubin 0.3 (0.2-1.0) mg/dL AST 10 (10-42) IU/L ALT 18 (10-60) IU/L Alkaline Phosphatase 125 H (42-121) IU/L Total Protein 6.3 L (6.4-8.9) g/dL Albumin 3.2 (3.2-5.5) g/dL Globulin 3.1 (2.1-4.2) g/dL Albumin/Globulin Ratio 1.0 (1.0-2.2) Assessment/Plan Problem List (1) Postoperative abscess: (2) History of hysterectomy: (3) Hydronephrosis of right kidney:
[2025-02-05 05:16] LABS: HCT - HEMATOCRIT 26.5 % (37.0-47.0); HGB - HEMOGLOBIN 8.4 g/dL (12.0-16.0); MEAN PLATELET VOLUME 10.0 fL (7.9-10.8); NRBC ABSOLUTE COUNT (AUTO) 0.00 x10^3/uL; NUCLEATED RED BLOOD CELLS AUTO 0.0 /100WBC; PLT - PLATELET COUNT 361 10^3/uL (130-450); RED CELL DISTRIBUTION WIDTH 12.8 % (12.0-15.0)
[2025-02-05] MEDS: ONDANSETRON 4 MG/2 ML VIAL IVP PRN (07:10)
--- NOTE | 2025-02-05 08:07 | PROVIDER PROGRESS NOTE ---
Subjective Subjective Subjective: Patient is a 39-year-old female status post TLH on 01/18/2025. She has been doing well overnight. No significant abdominal pain today. She did have a headache and nausea earlier, but took some ibuprofen and this resolved. Has been urinating without difficulty. No fever or chills. Has not had a bowel movement for 2 days. Current Medications Current Medications Current Medications: Current Medications Generic Name Dose Route Start Last Admin Trade Name Freq PRN Reason Stop Dose Admin Acetaminophen 650 mg 02/04/25 01:55 02/04/25 21:08 Acetaminophen 325 Mg Tablet PO 650 mg Q4HR PRN Administration Moderate Pain (Level 4-6) Calcium Carbonate/Glycine 1,000 mg 02/04/25 03:09 Calcium Carbonate Chew 500 Mg Tablet PO Q6HR PRN Heartburn Diphenhydramine HCl 25 mg 02/04/25 03:09 Diphenhydramine 25 Mg Capsule PO Q6HR PRN allergies, itching, insomnia Famotidine 20 mg 02/04/25 01:55 Famotidine 20 Mg Tablet PO BID PRN heartburn Ceftriaxone Sodium 2 gm/ 100 mls @ 200 mls/hr 02/04/25 22:00 02/04/25 21:40 Sodium Chloride IV Infused DAILY MALENA Infusion Metronidazole 500 mg in 100 mls @ 100 mls/hr 02/04/25 08:00 02/05/25 01:12 Flagyl 500 Mg/100 Ml IV Infused Q8H MALENA Infusion Ibuprofen 600 mg 02/04/25 01:55 02/05/25 07:10 Ibuprofen 600 Mg Tablet PO 600 mg Q6HR PRN Administration Moderate Pain (Level 4-6) Metoclopramide HCl 10 mg 02/04/25 01:55 Metoclopramide 10 Mg/2 Ml Vial IVP Q6H PRN Nausea / Vomiting Ondansetron HCl 4 mg 02/04/25 01:55 02/05/25 07:10 Ondansetron 4 Mg/2 Ml Vial IVP 4 mg Q6H PRN Administration Nausea / Vomiting Ondansetron HCl 4 mg 02/04/25 03:04 02/04/25 07:09 Ondansetron Odt 4 Mg Tablet TL 4 mg Q6HR PRN Administration Nausea / Vomiting Oxycodone HCl 5 mg 02/03/25 23:33 02/03/25 23:38 Oxycodone 5 Mg Tablet PO 5 mg Q4H PRN Administration Abdominal Pain Polyethylene Glycol 17 gm 02/04/25 03:04 Polyethylene Glycol 3350 17 Gm Packet PO DAILY PRN Bowel Protocol Simethicone 80 mg 02/04/25 03:09 Simethicone Chew 80 Mg Tablet PO TID PRN Gas Sodium Chloride 10 ml 02/04/25 09:00 02/05/25 00:12 Sodium Chloride Flush 0.9% 10 Ml Syringe IVP 10 ml 0100,0900,1700 MALENA Administration Sodium Chloride 10 ml 02/04/25 01:55 Sodium Chloride Flush 0.9% 10 Ml Syringe IVP PRN PRN NEEDED PER PROVIDER ORDERS Zolpidem Tartrate 5 mg 02/04/25 01:55 Zolpidem 5 Mg Tablet PO QPM PRN Insomnia Objective Vital Signs/Intake & Output Vital Signs: Vital Signs x48h Temp Pulse Resp BP Pulse Ox 02/05/25 04:46 36.7 C 76 12 110/70 99 Intake & Output: Intake & Output 02/02/25 02/03/25 02/04/25 02/05/25 23:59 23:59 23:59 23:59 Intake Total 100 / 100 1230 / 1230 150 / 150 Output Total 0 / 0 Balance 100 / 100 1230 / 1230 150 / 150 Weight (kg) 130 lb 128 lb 15.527 oz Objective General Appearance: positive No acute distress and Alert Respiratory: positive No respiratory distress and Breath sounds nml Cardiovascular: positive Regular rate & rhythm, No murmur and No gallop Lab Results 02/05/25 04:35 02/04/25 16:07 Other Labs: Lab Results x24hrs 02/05/25 02/04/25 Range/Units 04:35 16:07 WBC 11.0 H 12.2 H (4.8-10.8) x10^3/uL RBC 3.18 L 3.18 L (4.20-5.40) 10^6/uL Hgb 8.4 L 8.6 L (12.0-16.0) g/dL Hct 26.5 L 26.6 L (37.0-47.0) % MCV 83.3 83.6 (81.0-99.0) fL MCH 26.4 L 27.0 (27.0-31.0) pg MCHC 31.7 L 32.3 (32.0-36.0) g/dL RDW 12.8 12.8 (12.0-15.0) % Plt Count 361 332 (130-450) 10^3/uL MPV 10.0 9.3 (7.9-10.8) fL Neut # (Auto) 8.1 H 8.9 H (1.5-6.6) 10^3/uL Lymph # (Auto) 1.4 L 1.6 (1.5-3.5) 10^3/uL [place] # (Auto) 1.0 1.2 H (0.0-1.0) 10^3/uL Eos # (Auto) 0.4 0.3 (0.0-0.7) 10^3/uL Baso # (Auto) 0.1 0.1 (0.0-0.1) 10^3/uL Absolute Nucleated RBC 0.00 0.00 x10^3/uL Nucleated RBC % 0.0 0.0 /100WBC Sodium 137 (135-145) mmol/L Potassium 3.7 (3.5-4.5) mmol/L Chloride 107 (101-111) mmol/L Carbon Dioxide 24 (21-32) mmol/L Anion Gap 6.0 (6-13) BUN 13 (6-20) mg/dL Creatinine 0.6 (0.6-1.3) mg/dL Estimated GFR (MDRD) 111 (>89) Glucose 105 H (74-104) mg/dL Calcium 8.4 L (8.5-10.3) mg/dL Total Bilirubin 0.3 (0.2-1.0) mg/dL AST 10 (10-42) IU/L ALT 18 (10-60) IU/L Alkaline Phosphatase 125 H (42-121) IU/L Total Protein 6.3 L (6.4-8.9) g/dL Albumin 3.2 (3.2-5.5) g/dL Globulin 3.1 (2.1-4.2) g/dL Albumin/Globulin Ratio 1.0 (1.0-2.2) Assessment/Plan Problem List (1) Postoperative abscess: (2) Hydronephrosis of right kidney:
[2025-02-06 09:20] LABS: HCT - HEMATOCRIT 29.1 % (37.0-47.0); HGB - HEMOGLOBIN 9.3 g/dL (12.0-16.0); MEAN PLATELET VOLUME 9.4 fL (7.9-10.8); NRBC ABSOLUTE COUNT (AUTO) 0.00 x10^3/uL; NUCLEATED RED BLOOD CELLS AUTO 0.0 /100WBC; PLT - PLATELET COUNT 387 10^3/uL (130-450); RED CELL DISTRIBUTION WIDTH 12.7 % (12.0-15.0)
[2025-02-06 09:35] LABS: BUN - BLOOD UREA NITROGEN 9.0 mg/dL (6-20); CARBON DIOXIDE - CO2 25.0 mmol/L (21-32); CREATININE 0.5 mg/dL (0.6-1.3); GFR - MDRD 137.0 (>89)
[2025-02-06] MEDS ORDERED: iohexoL-300 150 ML BOTTLE ONE (09:45)
[2025-02-06] MEDS: iohexoL-300 150 ML BOTTLE IVP ONE (11:16)
--- NOTE | 2025-02-06 12:22 | CT Report ---
PROCEDURE: CT IVP INDICATIONS: Re-evaluate pelvic abscess right ureter/kidney CONTRAST: 140 ML OMNI 300 TECHNIQUE: A [address] of the abdomen and pelvis was performed. Non-contrast and intravenous contrast images were recorded and evaluated at appropriate window settings. Images were recorded and evaluated at appropriate window settings. Reformats: coronal and sagittal. For radiation dose reduction, the following was used: automated exposure control, adjustment of mA and/or kV according to patient size. COMPARISON: 02/03/2025 FINDINGS: Image quality: Diagnostic. Lower chest: Unremarkable. Liver: No solid mass. Gallbladder: No radiopaque stones or wall thickening. Biliary tree: No intrahepatic or extrahepatic dilation, accounting for age. Spleen: No splenomegaly. Pancreas: No pancreatic ductal dilation. Adrenals: No adrenal nodule. Kidneys and ureters: Both kidneys are normal in size. No hydronephrosis or nephrolithiasis on pre-contrast images. Mild right hydronephrosis, similar compared to prior. Probably slight delay in right renal function given the lack of medullary enhancement compared to the left. No perinephric inflammation or focal renal parenchymal hypoenhancement. Moderate right hydroureter to the level of the pelvic fluid collection. No calcifications. The left ureter is normal caliber. Stomach, bowel and peritoneum: Stomach and upper bowel loops are normal. Appendix is absent. Mild hyperemia and pelvic small bowel loops, probably due to adjacent inflammation. No extraluminal gas. Generalized mild fat stranding and moderate pelvic fascial thickening. There is less pericolonic fat stranding involving the sigmoid. An irregular, thick-walled fluid collection at the right apex of the vaginal cuff measures about 2.0 x 3.3 x 2.2 cm. There are several other thick walled, smaller irregular fluid collections along the vaginal cuff without definite communication to the main fluid collection. All have decreased compared to prior. Abdominal Lymph nodes: No central or retroperitoneal adenopathy. Vessels: Normal caliber abdominal aorta, IVC, and portal vein. Patent portal vein. Reproductive organs: Hysterectomy. Dominant left ovarian follicle containing a daughter follicle. CT appearance of the right ovarian tissue is within normal limits. Bladder: Mild circumferential urinary bladder wall thickening, enhancement, and mild perivesicular fat stranding. No calcified bladder stones. No filling defect within the opacified bladder. Pelvic Lymph nodes: Expected small external iliac chain nodes. No pathologic adenopathy. Bones: No aggressive osseous abnormality. Other: None. IMPRESSION: Decreased size of right pelvic abscess at the vaginal cuff. Persistent right hydroureteronephrosis to the level of the pelvic abscess. Persistent mild delay in right renal function without progression or development of pyelonephritis. Persistent mild urinary bladder inflammation. Reactive small and large bowel inflammation.. Reviewed by: Radha Pickard MD on 02/06/2025 12:19 PM PST Approved by: Radha Pickard MD on 02/06/2025 12:19 PM PST Station ID: [id number]
--- NOTE | 2025-02-06 12:41 | HISTORY & PHYSICAL EXAMINATION ---
Chief Complaint Chief Complaint Chief Complaint: right hydronephrosis History of Present Illness History Obtained From History obtained from: patient History of Present Illness HPI Comment/Other: Rosy is a 39-year-old woman with no significant urological history who presented to our hospital 2 days ago for evaluation of fever and was found to have a postoperative pelvic abscess. She had a total laparoscopic hysterectomy and bilateral salpingectomy performed January 18 at [facility]. Her CT scan at the time showed also right hydroureteronephrosis to the level of her pelvic abscess She had a repeat CT scan which was a CT IVP with delayed phase which showed no contrast down her ureter and perhaps a minimally delayed nephrogram on the right. She is afebrile and hemodynamically stable. And is otherwise clinically improving. She states she has no right flank pain or back pain Colonoscopy Questionnaire In the last 30 days have you experienced these symptoms? PFSH Active Problems All Active Problems (Updated 02/04/25 @ 00:41 by Victoriano Leggett MD) Hydronephrosis of right kidney (Acute) Postoperative abscess (Acute) Fever and chills (Acute) Surgical History Surgical History (Updated 02/04/25 @ 12:12 by Lynn Arriaga MD) History of appendectomy History of tonsillectomy History of hysterectomy Social History Social History (Updated 02/03/25 @ 10:04 by Sania August, RN, BSN) Smoking Status: Never smoker Second hand tobacco smoke exposure: No Do you dip or chew tobacco?: No Do you vape?: No Patient requests smoking cessation consult: No Initiate information on smoking cessation: No Level: Independent Do you feel safe in your home environment?: Yes History of physical, verbal, emotional, or financial abuse?: No POLST Patient has POLST: No Meds/Allgy Home Medications Ambulatory Orders Medication Instructions Recorded Confirmed No Known Home Medications 02/03/25 1208/23 Allergies Allergies Allergy/AdvReac Type Severity Reaction Status Date / Time Penicillins Allergy Hives Verified 02/03/25 19:28 Results Lab Results Lab results reviewed: Yes 02/06/25 09:13 02/06/25 09:13 Other Lab Results: Lab Results x24hrs 02/06/25 Range/Units 09:13 WBC 5.7 (4.8-10.8) x10^3/uL RBC 3.48 L (4.20-5.40) 10^6/uL Hgb 9.3 L (12.0-16.0) g/dL Hct 29.1 L (37.0-47.0) % MCV 83.6 (81.0-99.0) fL MCH 26.7 L (27.0-31.0) pg MCHC 32.0 (32.0-36.0) g/dL RDW 12.7 (12.0-15.0) % Plt Count 387 (130-450) 10^3/uL MPV 9.4 (7.9-10.8) fL Neut # (Auto) 3.4 (1.5-6.6) 10^3/uL Lymph # (Auto) 1.5 (1.5-3.5) 10^3/uL [place] # (Auto) 0.4 (0.0-1.0) 10^3/uL Eos # (Auto) 0.3 (0.0-0.7) 10^3/uL Baso # (Auto) 0.1 (0.0-0.1) 10^3/uL Absolute Nucleated RBC 0.00 x10^3/uL Nucleated RBC % 0.0 /100WBC Sodium 139 (135-145) mmol/L Potassium 3.6 (3.5-4.5) mmol/L Chloride 109 (101-111) mmol/L Carbon Dioxide 25 (21-32) mmol/L Anion Gap 5.0 L (6-13) BUN 9 (6-20) mg/dL Creatinine 0.5 L (0.6-1.3) mg/dL Estimated GFR (MDRD) 137 (>89) Glucose 90 (74-104) mg/dL Calcium 8.5 (8.5-10.3) mg/dL Diagnostic Imaging Results Diagnostic Imaging Results: positive Discussed with radiologist and Read independently Exam Exam Vital Signs: Vital Signs x48h Temp Pulse Resp BP Pulse Ox 02/06/25 11:40 36.7 C 63 12 125/78 100 02/06/25 08:04 36.6 C 74 16 112/75 98 NAD RRR CTA b/l Impression/Plan Problem List (1) Postoperative abscess: (2) Hydronephrosis of right kidney: Plan: Right hydronephrosis possibly related to extrinsic compression due to pelvic abscess versus possible ureteral injury. I am optimistic on the former. I recommend cystoscopy, right retrograde pyelogram, possible right ureteral stent placement. The risk, benefits, alternatives were discussed the patient. Specific risks of infection, bleeding, injury to adjacent structures, need for additional procedures, failure of therapy, pain were discussed We did discuss that I would not perform a repair in the acute setting given her infection She would likely need nephrostomy tube placement and/or delayed repair in the outpatient Patient is understanding and consents the above plan
--- NOTE | 2025-02-06 14:47 | PROVIDER PROGRESS NOTE ---
Subjective Prog Note Date Prog Note Date: 02/06/25 Prog Note Time: 14:47 Current Medications Current Medications Current Medications: Current Medications Generic Name Dose Route Start Last Admin Trade Name Guy PRN Reason Stop Dose Admin Acetaminophen 650 mg 02/04/25 01:55 02/06/25 05:03 Acetaminophen 325 Mg Tablet PO 650 mg Q4HR PRN Administration Moderate Pain (Level 4-6) Calcium Carbonate/Glycine 1,000 mg 02/04/25 03:09 Calcium Carbonate Chew 500 Mg Tablet PO Q6HR PRN Heartburn Diphenhydramine HCl 25 mg 02/04/25 03:09 Diphenhydramine 25 Mg Capsule PO Q6HR PRN allergies, itching, insomnia Famotidine 20 mg 02/04/25 01:55 Famotidine 20 Mg Tablet PO BID PRN heartburn Ceftriaxone Sodium 2 gm/ 100 mls @ 200 mls/hr 02/04/25 22:00 02/06/25 09:10 Sodium Chloride IV Infused DAILY MALENA Infusion Metronidazole 500 mg in 100 mls @ 100 mls/hr 02/04/25 08:00 02/06/25 08:32 Flagyl 500 Mg/100 Ml IV Infused Q8H MALENA Infusion Ibuprofen 600 mg 02/04/25 01:55 02/05/25 07:10 Ibuprofen 600 Mg Tablet PO 600 mg Q6HR PRN Administration Moderate Pain (Level 4-6) Metoclopramide HCl 10 mg 02/04/25 01:55 Metoclopramide 10 Mg/2 Ml Vial IVP Q6H PRN Nausea / Vomiting Ondansetron HCl 4 mg 02/04/25 01:55 02/06/25 08:29 Ondansetron 4 Mg/2 Ml Vial IVP 4 mg Q6H PRN Administration Nausea / Vomiting Ondansetron HCl 4 mg 02/04/25 03:04 02/05/25 12:59 Ondansetron Odt 4 Mg Tablet TL 4 mg Q6HR PRN Administration Nausea / Vomiting Oxycodone HCl 5 mg 02/03/25 23:33 02/03/25 23:38 Oxycodone 5 Mg Tablet PO 5 mg Q4H PRN Administration Abdominal Pain Polyethylene Glycol 17 gm 02/04/25 03:04 Polyethylene Glycol 3350 17 Gm Packet PO DAILY PRN Bowel Protocol Simethicone 80 mg 02/04/25 03:09 Simethicone Chew 80 Mg Tablet PO TID PRN Gas Sodium Chloride 10 ml 02/04/25 09:00 02/06/25 07:30 Sodium Chloride Flush 0.9% 10 Ml Syringe IVP 10 ml 0100,0900,1700 MALENA Administration Sodium Chloride 10 ml 02/04/25 01:55 Sodium Chloride Flush 0.9% 10 Ml Syringe IVP PRN PRN NEEDED PER PROVIDER ORDERS Zolpidem Tartrate 5 mg 02/04/25 01:55 Zolpidem 5 Mg Tablet PO QPM PRN Insomnia Objective Vital Signs/Intake & Output Vital Signs: Vital Signs x48h Temp Pulse Resp BP Pulse Ox 02/06/25 11:40 98.1 F 63 12 125/78 100 02/06/25 08:04 97.9 F 74 16 112/75 98 Intake & Output: Intake & Output 02/03/25 02/04/25 02/05/25 02/06/25 23:59 23:59 23:59 23:59 Intake Total 100 / 100 1230 / 1230 1210 / 1210 300 / 300 Output Total 0 / 0 Balance 100 / 100 1230 / 1230 1210 / 1210 300 / 300 Weight (kg) 130 lb 128 lb 15.527 oz Lab Results 02/06/25 09:13 02/06/25 09:13 Other Labs: Lab Results x24hrs 02/06/25 Range/Units 09:13 WBC 5.7 (4.8-10.8) x10^3/uL RBC 3.48 L (4.20-5.40) 10^6/uL Hgb 9.3 L (12.0-16.0) g/dL Hct 29.1 L (37.0-47.0) % MCV 83.6 (81.0-99.0) fL MCH 26.7 L (27.0-31.0) pg MCHC 32.0 (32.0-36.0) g/dL RDW 12.7 (12.0-15.0) % Plt Count 387 (130-450) 10^3/uL MPV 9.4 (7.9-10.8) fL Neut # (Auto) 3.4 (1.5-6.6) 10^3/uL Lymph # (Auto) 1.5 (1.5-3.5) 10^3/uL [place] # (Auto) 0.4 (0.0-1.0) 10^3/uL Eos # (Auto) 0.3 (0.0-0.7) 10^3/uL Baso # (Auto) 0.1 (0.0-0.1) 10^3/uL Absolute Nucleated RBC 0.00 x10^3/uL Nucleated RBC % 0.0 /100WBC Sodium 139 (135-145) mmol/L Potassium 3.6 (3.5-4.5) mmol/L Chloride 109 (101-111) mmol/L Carbon Dioxide 25 (21-32) mmol/L Anion Gap 5.0 L (6-13) BUN 9 (6-20) mg/dL Creatinine 0.5 L (0.6-1.3) mg/dL Estimated GFR (MDRD) 137 (>89) Glucose 90 (74-104) mg/dL Calcium 8.5 (8.5-10.3) mg/dL Assessment/Plan Problem List (1) Postoperative abscess: (2) Hydronephrosis of right kidney:
--- NOTE | 2025-02-06 15:30 | ANESTHESIA PROCEDURE NOTE ---
Pre-Anesthesia VS, & Labs Diagnosis Surgical Diagnosis:: hydronephrosis right kidney post hysterectomy Procedure Procedure: cystoscopy, retrograde pylogram, possible right ureteral stent Vitals Vital Signs: Temp Pulse Resp BP Pulse Ox 36.7 C 63 12 125/78 100 02/06/25 11:40 02/06/25 11:40 02/06/25 11:40 02/06/25 11:40 02/06/25 11:40 Is Patient ?: No Lab Results Current Lab Results: Laboratory Tests 02/06/25 14:25: POC Whole Bld Glucose 84 02/06/25 09:13: WBC 5.7, RBC 3.48 L, Hgb 9.3 L, Hct 29.1 L, MCV 83.6, MCH 26.7 L , MCHC 32.0, RDW 12.7, Plt Count 387, MPV 9.4, Neut # (Auto) 3.4, Lymph # (Auto) 1.5, [place] # (Auto) 0.4, Eos # (Auto) 0.3, Baso # (Auto) 0.1, Absolute Nucleated RBC 0.00, Nucleated RBC % 0.0, Sodium 139, Potassium 3.6, Chloride 109, Carbon Dioxide 25, Anion Gap 5.0 L, BUN 9, Creatinine 0.5 L, Estimated GFR (MDRD) 137, Glucose 90, Calcium 8.5 02/05/25 04:35: WBC 11.0 H, RBC 3.18 L, Hgb 8.4 L, Hct 26.5 L, MCV 83.3, MCH 26.4 L, MCHC 31.7 L, RDW 12.8, Plt Count 361, MPV 10.0, Neut # (Auto) 8.1 H, L ymph # (Auto) 1.4 L, [place] # (Auto) 1.0, Eos # (Auto) 0.4, Baso # (Auto) 0.1, Absolute Nucleated RBC 0.00, Nucleated RBC % 0.0 02/04/25 16:07: WBC 12.2 H, RBC 3.18 L, Hgb 8.6 L, Hct 26.6 L, MCV 83.6, MCH 27.0, MCHC 32.3, RDW 12.8, Plt Count 332, MPV 9.3, Neut # (Auto) 8.9 H, Lymph # (Auto) 1.6, [place] # (Auto) 1.2 H, Eos # (Auto) 0.3, Baso # (Auto) 0.1, Absolute Nucleated RBC 0.00, Nucleated RBC % 0.0, Sodium 137, Potassium 3.7, Chloride 107, Carbon Dioxide 24, Anion Gap 6.0, BUN 13, Creatinine 0.6, Estimated GFR (MDRD) 111, Glucose 105 H, Calcium 8.4 L, Total Bilirubin 0.3, AST 10, ALT 18, A lkaline Phosphatase 125 H, Total Protein 6.3 L, Albumin 3.2, Globulin 3.1, Albumin/Globulin Ratio 1.0 02/03/25 22:38: Lactic Acid 0.6 02/03/25 19:53: WBC 13.5 H, RBC 3.76 L, Hgb 10.0 L, Hct 31.3 L, MCV 83.2, MCH 26.6 L, MCHC 31.9 L, RDW 12.7, Plt Count 433, MPV 9.6, Neut # (Auto) 9.8 H, Lymph # (Auto) 2.1, [place] # (Auto) 1.2 H, Eos # (Auto) 0.2, Baso # (Auto) 0.1, Absolute Nucleated RBC 0.00, Nucleated RBC % 0.0, Sodium 137, Potassium 3.1 L, Chloride 104, Carbon Dioxide 26, Anion Gap 7.0, BUN 11, Creatinine 0.6, Estimated GFR (MDRD) 111, Glucose 98, Calcium 9.0, Total Bilirubin 0.4, AST 17, ALT 25, Alkaline Phosphatase 160 H, Total Protein 7.4, Albumin 3.9, Globulin 3.5, Albumin/Globulin Ratio 1.1 02/06/25 09:13 02/06/25 09:13 Meds/Allgy Home Medications Ambulatory Orders Medication Instructions Recorded Confirmed No Known Home Medications 02/03/2508/23 Allergies Allergies Allergy/AdvReac Type Severity Reaction Status Date / Time Penicillins Allergy Hives Verified 02/03/25 19:28 [facility] Active Problems All Active Problems (Updated 02/06/25 @ 15:10 by Lynn Arriaga MD) Vaginal discharge (Acute) Hydronephrosis of right kidney (Acute) Postoperative abscess (Acute) Fever and chills (Acute) Surgical History Surgical History (Updated 02/04/25 @ 12:12 by Lynn Arriaga MD) History of appendectomy History of tonsillectomy History of hysterectomy Social History Social History (Updated 02/03/25 @ 10:04 by Sania August, RN, BSN) Smoking Status: Never smoker Second hand tobacco smoke exposure: No Do you dip or chew tobacco?: No Do you vape?: No Patient requests smoking cessation consult: No Initiate information on smoking cessation: No Level: Independent Do you feel safe in your home environment?: Yes History of physical, verbal, emotional, or financial abuse?: No POLST Patient has POLST: No Anesthesia Exam (Expanded) Exam General: Alert, Oriented x3 and Cooperative Dental: WNL Mouth Opening: Greater than 4 Fingerbreadths Neck Mobility: Normal Mallampati classification: II Thyromental Distance: greater than 6 cm Respiratory: Lungs clear Cardiovascular: Regular rate Exam Exam Vital Signs: Vital Signs x48h Temp Pulse Resp BP Pulse Ox 02/06/25 11:40 36.7 C 63 12 125/78 100 02/06/25 08:04 36.6 C 74 16 112/75 98 Plan Problem List (1) Postoperative abscess: (2) Hydronephrosis of right kidney: Plan Anesthesia Type: General Consent for Procedure(s) Verified and Reviewed: Yes Code Status: Attempt Resuscitation ASA Classification ASA classification: 2-Mild systemic disease Is this case an emergency?: Yes
[2025-02-06] MEDS ORDERED: LIDOCAINE-PF 2% 10 ML AMP SUBQ ONE (15:41)
[2025-02-06] MEDS ORDERED: DEXAMETHASONE 4 MG/ML VIAL ONE (15:41)
[2025-02-06] MEDS ORDERED: iohexoL-240 20 ML VIAL IVP ONE (15:41)
[2025-02-06] MEDS ORDERED: ONDANSETRON 4 MG/2 ML VIAL ONE (15:41)
[2025-02-06] MEDS ORDERED: PROPOFOL 200 MG/20 ML VIAL IVP ONE (15:41)
[2025-02-06] MEDS ORDERED: fentaNYL 100 MCG/2 ML VIAL ONE (15:44)
[2025-02-06] MEDS ORDERED: MIDAZOLAM 2 MG/2 ML VIAL ONE (15:44)
[2025-02-06] MEDS ORDERED: SCOPOLAMINE PATCH TOP ONE (15:49)
[2025-02-06] MEDS ORDERED: LIDOCAINE 2% URO-JET 5 ML SYRINGE UR ONE (15:59)
[2025-02-06] MEDS ORDERED: droPERidol 2.5 MG/ML VIAL ONE (16:28)
[2025-02-06] MEDS ORDERED: ePHEDrine 50 MG/ML VIAL IVP ONE (16:30)
[2025-02-06] MEDS ORDERED: LACTATED RINGERS 1,000 ML IV PRN (16:37)
[2025-02-06] MEDS ORDERED: SOLIFENACIN SUCCINATE 5 MG TABLET PO PRN (16:44)
--- NOTE | 2025-02-06 16:44 | OPERATIVE REPORT ---
Operative Report General Admit Date: 02/04/25 Procedure Data: Operation Date: 02/06/25 16:00 Proposed Procedures p Cystoscopy RETROGRADE PYELOGRAM POSSIBLE Ureteral Stent Placement(Right) - Yaya Alba MD Anesthesia Type General Pre-Op Diagnosis: right hydronephrosis Post Op Diagnosis: same Procedure Note Indications: right hydronephrosis Findings: tortuous proximal ureter, no extravasation Complications: none Other Other Information/Narrative: After informed consent was obtained the patient was brought to the OR and laid in the supine position. The patient was anesthetized per anesthesia protocols and prepped and draped in usual sterile fashion in the dorsolithotomy position. For prepping care was made to prep her introitus and urethral meatus but we did not prep more proximally in her vagina given her recent surgery. A formal timeout was performed reconfirming the patient and procedure and laterality. A 22 [place] cystoscope was advanced easily per urethra into the urinary bladder. The bladder was inspected in full and there were no masses or lesions or other concerns. A 5 [place] ureteral catheter was advanced into the right UVJ and a gentle retrograde pyelogram was performed which showed no obvious ureteral extravasation but did show proximal hydroureteronephrosis from roughly the mid ureter. There was some kinking of the ureter as well at the mid ureter consistent with extrinsic compression. A 6 [place] 26 cm stent was placed with good curling noted in the kidney and good curling noted in the bladder. The bladder was emptied and a Uro-Jet was placed. This concluded the procedure and the patient tolerated the procedure well. She will return to the [facility] and follow-up in 3 to 6 weeks time for cystoscopy and stent removal in the office. She I will likely repeat her CT IVP a few weeks after that
[2025-02-06] MEDS ORDERED: MORPHINE 2 MG/ML CARPUJECT IVP PRN (17:06)
[2025-02-06] MEDS ORDERED: HYDROmorphone 0.5 MG/0.5 ML SYRINGE IVP PRN (17:06)
[2025-02-06] MEDS ORDERED: ePHEDrine 50 MG/ML VIAL IVP PRN (17:06)
[2025-02-06] MEDS ORDERED: ATROPINE ABBOJECT 1 MG/10 ML SYRINGE IVP PRN (17:06)
[2025-02-06] MEDS ORDERED: fentaNYL 100 MCG/2 ML VIAL IVP PRN (17:06)
[2025-02-06] MEDS ORDERED: NALOXONE 0.4 MG/ML VIAL IVP PRN (17:06)
[2025-02-06] MEDS ORDERED: ONDANSETRON 4 MG/2 ML VIAL IVP PRN (17:06)
[2025-02-06] MEDS ORDERED: METOCLOPRAMIDE 10 MG/2 ML VIAL IVP PRN (17:06)
--- NOTE | 2025-02-06 17:18 | ANESTHESIA POST OP EVALUATION ---
Anesthesia Post Eval Post Anesthesia Eval Vitals: Last Vital Signs Temp 36.8 C 02/06/25 17:10 Pulse 79 02/06/25 17:15 Resp 14 02/06/25 17:15 BP 123/82 02/06/25 17:15 Pulse Ox 98 02/06/25 17:15 CV Function Including HR & BP: Stable Pain Control: Satisfactory Nausea & Vomiting: Negative Mental Status: Baseline Respiratory Status: Airway Patent Hydration Status: Satisfactory Anesthesia Complications: None
[2025-02-06] MEDS ORDERED: LACTATED RINGERS 1,000 ML IV SCH (18:00)
--- NOTE | 2025-02-06 19:06 | Discharge Summary ---
Discharge Summary Admit Date: 02/04/25 Discharge Date: 02/06/25 Discharging Provider: Lynn Arriaga MD [facility] History of Present Illness: Admission Diagnosis: - s/p JESSY BS - postoperative pelvic abscess - right hydroureteronephrosis - Anemia, uncertain etiology, stable Discharge Diagnosis: - Same Procedures: cystoscopy with retrograde pyelogram, ureteral stent placement with Dr. Alba [facility] Course: Rosy is a 39 yo who is s/p TLH, BS on 01/18/25, who was admitted on 02/04/25 with fever, pain and findings on CT A/P of a 5.2cm pelvic abscess in addition to moderate right hydroureteronephrosis and mild hypoenhancement of the right kidney. She received treatment with IV ceftriaxone/flagyl and then CT was repeated after more than 48hrs of IV antibiocs. She had a repeat CT scan which was a CT IVP with delayed phase which showed no contrast down her ureter and perhaps a minimally delayed nephrogram on the right. Dr. Alba, urologist, recommended cystoscopy with retrograde pyelogram and possible stent placement. She had no obvious ureteral extravasation but did show proximal hydroureteronephrosis from roughly the mid ureter. There was some kinking of the ureter as well at the mid ureter consistent with extrinsic compression from the pelvic abscess. She is no longer having pelvic pain that she had on presentation, and has been afebrile. WBC has trended down to normal. She would like to go home this evening with transition to oral antibiotics with an antiemetic for nausea. Condition on Discharge: SUBJECTIVE: Rosy evaluated twice at bedside today. Reports that her pelvic pain has resolved. The discharge that she had after admission has also lessened significantly. She is still having nausea, feeling very hungry today after being NPO. No vaginal bleeding. Would really like to go home this evening to sleep in her own bed. able to crop picker her prescriptions from the pharmacy. OBJECTIVE: Vital signs reviewed GENERAL: NAD CHEST: non labored respirations ABD: soft, non tender, non-distended. INCISIONS: healing well EXT: no LE edema Pelvic exam was performed earlier today, vaginal cuff without erythema and appears to be healing well and intact, small amount of discharge present which was sent for culture. On bimanual exam, there is 4-5cm palpable firm area on the right side of the cuff extending towards the midline, non tender. Cuff is intact. LAB & IMAGING STUDIES: See below PLAN: Plan for discharge home this evening with transition to PO antibiotics (cipro/flagyl for another 5 days). Marta sent for nausea. She will follow up with Dr. Alba for cystoscopy/stent removal. I recommended that she call Dr. Quiroz office in [place] for follow up in 1 week. She does already have a 6week postoperative appointment scheduled with their office. We reviewed return precautions including signs of infection, severe worsening pain, vaginal bleeding, lifting and pelvic rest precautions. Lynn Arriaga MD ALLERGIES Allergies Allergy/AdvReac Type Severity Reaction Status Date / Time Penicillins Allergy Hives Verified 02/03/25 19:28 MEDICATIONS Ambulatory Orders Medication Instructions Recorded Confirmed ciprofloxacin HCl 500 mg tablet 500 mg PO ONCE #1 tab 02/06/25 ciprofloxacin HCl 500 mg tablet 500 mg PO Q12H 5 days #10 tabs 02/06/25 metronidazole 500 mg tablet 500 mg PO Q8H 5 days #15 t abs 02/06/25 ondansetron 4 mg disintegrating 4 mg PO Q6HR PRN nause a and 02/06/25 tablet vomiting #20 tabs oxybutynin chloride 5 mg tablet 5 mg PO TID PRN bladde r spasms #90 02/06/25 tabs PHYSICAL EXAM AT DISCHARGE Vital Signs: Vital Signs x48h Temp Pulse Pulse Resp BP BP BP 02/06/25 18:05 98.1 F 79 18 139/86 H 02/06/25 17:50 98.1 F 71 18 134/76 H 02/06/25 17:35 97.9 F 71 18 127/76 02/06/25 17:20 98.1 F 81 18 124/83 02/06/25 17:15 79 14 123/82 02/06/25 17:10 98.2 F 82 16 125/77 02/06/25 17:05 83 14 127/79 02/06/25 17:00 98.2 F 81 15 126/80 02/06/25 16:55 86 15 127/81 02/06/25 16:50 97.7 F 92 14 126/78 02/06/25 15:30 98.1 F 64 18 123/73 02/06/25 11:40 98.1 F 63 12 125/78 Pulse Ox 02/06/25 18:05 97 02/06/25 17:50 98 02/06/25 17:35 98 02/06/25 17:20 99 02/06/25 17:15 98 02/06/25 17:10 98 02/06/25 17:05 98 02/06/25 17:00 98 02/06/25 16:55 97 02/06/25 16:50 98 02/06/25 15:30 100 02/06/25 11:40 100 LABS 02/06/25 09:13 02/06/25 09:13 TIME SPENT Time Spent in Discharge (Minutes): 50 Discharge Plan Discharge Patient Disposition: Home, Self Care Prescriptions: New oxybutynin chloride 5 mg tablet 5 mg PO TID PRN (Reason: bladder spasms) Qty: 90 1RF ciprofloxacin HCl 500 mg tablet 500 mg PO ONCE Qty: 1 0RF Rx Instructions: take one tab 1-2 hours before cystoscopy and stent removal in the office ciprofloxacin HCl 500 mg tablet 500 mg PO Q12H 5 Days Qty: 10 0RF metronidazole 500 mg tablet 500 mg PO Q8H 5 Days Qty: 15 0RF ondansetron 4 mg tablet,disintegrating 4 mg PO Q6HR PRN (Reason: nausea and vomiting) Qty: 20 0RF Activity Restrictions/Additional Instructions: After hysterectomy, would recommend the following: - No heavy lifting more than 15lb - Nothing in the vagina (no intercourse, no tampons). - Avoid straining with bowel movements. You may use an over the counter medication such as as Senna or Miralax to help with constipation if needed. - You should follow up with your department manager office in 1 week After ureteral stent: DIET - You may resume your normal diet if there is no nausea or vomiting. You may want to avoid spicy, greasy, or heavy foods today to minimize gas. - If nausea or vomiting occurs, don't eat or drink anything for one hour. Then start drinking small amounts of clear liquids. Later, add crackers, gradually building up to your usual diet. ACTIVITY INSTRUCTIONS * There are no activity limitations from a ureteral stent * DISCHARGE INSTRUCTIONS * You have a ureteral stent in place. This must be exchanged or removed within 3 months. As of now the plan will be to remove the stent within 3 to 6 weeks time in the office. This is performed by performing a small cystoscopy in the office and grabbing the end of the stent and pulling it out. This is done while you are awake using some numbing jelly. * Please take antibiotic as prescribed on the way to that appointment. You may eat before the appointment and take your normal medications. * With a stent in place it is normal to have increased frequency and urgency of urination and blood in the urine. MEDICATIONS * You will be given a prescription of oxybutynin which is a medication which can help with bladder spasms if the stent is irritating you. It can cause constipation and dry mouth and dry eyes. Ensure you take stool softeners if you feel like you are getting constipated ANESTHESIA PRECAUTIONS Anesthesia and medications given during surgery remain in your body up to 24 hours. This may slow reaction time and/or decrease coordination. FOR THE NEXT 24 HOURS: - Have a responsible person with you - Avoid any activity that requires you to be alert and coordinated - DO NOT DRIVE a motor vehicle for 24 hours or as long as you are taking opoid pain medication - Do not drink alcoholic beverages - Do not smoke unattended Patient Date Escort Date RN Date Diet: Regular Print Language: Luxembourgish Patient Instructions: Surg Dc, Having a Ureteral Stent, Cystoscopy, Laparoscopic Hysterect Recovery Stand Alone Forms: PCP List Follow-up Care: Yaya Alba MD [Provider Admit Priv/Credential, Urology] Referral Note: You will be contacted for follow-up with Dr. Alba in 3 to 6 weeks time for cystoscopy and stent removal in the office NATACHA GUERIN MD [Physician No Access, Obstetrics/Gynecology] Vitals documented within 30 minutes of discharge?: Yes
[2025-02-06 21:02] VITALS: BP 109/65; TEMP 97.9; O2SAT 98
--- NOTE | 2025-02-07 20:17 | XRAY Report ---
PROCEDURE: [place] OR C-Arm Procedure INDICATIONS: Surgical Procedure TECHNIQUE: Intraoperative fluoroscopic guidance was provided and low-resolution fluoroscopic spot films were obtained. COMPARISON: None. FINDINGS: Low-resolution intraoperative spot films show retrograde ureteral gram and sequential ureteral stent placement in good position IMPRESSION: Fluoroscopic guidance. Reviewed by: Sincere Gonzalez MD on 02/07/2025 7:14 PM [place] Approved by: Sincere Gonzalez MD on 02/07/2025 7:14 PM [place] Station ID: [id number]
== END 2025-02-06 20:58 | disposition home or self-care (01) | DRG 857 ==
LOC: ED 19:17 → MS2 02-04 01:27
PROVIDERS: ADMIT Obstetrics & Gynecology; ATTEND Obstetrics & Gynecology